=== PATIENT | male | born 1955 ===

== ENCOUNTER 2024-01-05 22:04 | Inpatient (IN) ==
[2024-01-05 23:12] LABS: INR 1.55 (0.83-1.13)
[2024-01-05 23:14] LABS: ABS Basophils 0.1 10^3/uL (0.0-0.1); ABS Eosinophils 0.1 10^3/uL (0.0-0.5); ABS Lymphocytes 1.3 10^3/uL (1.0-4.8); ABS Monocytes 1.3 10^3/uL (0.0-1.1); ABS Neutrophils 8.8 10^3/uL (1.5-7.6); ABS Nucleated RBC 0.01 10^3/ul; Eosinophil % 0.8 %; Hematocrit 33.7 % (38-53); Lymphocyte % 11.5 %; Mean Corpuscular Hemoglobin 26.8 pg (27-33); Mean Corpuscular Hgb Conc 32.6 g/dL (31-36); Mean Corpuscular Volume 82.2 fL (80-97); Mean Platelet Volume 8.3 fL (7.5-11.2); Nucleated Red Blood Cells % 0.1 %/100WBC (0.0-0.8); Platelet Count 254 10^3/uL (150-450); Red Cell Distribution Width 15.8 % (12-17); White Blood Count 11.7 10^3/uL (3.6-10.2)
[2024-01-05 23:36] LABS: Albumin/Globulin Ratio 1.4 (1-3); Calcium 9.1 mg/dL (8.6-10.3); Creatinine, Serum 0.56 mg/dL (0.67-1.17); Globulin 2.9 g/dL (2-4); Total Bilirubin 0.6 mg/dL (0.2-1.0); Total Protein 6.9 g/dL (6.4-8.9); eGFR CKD-EPI 107.4 (>60)
[2024-01-06 00:29] LABS: High Sensitivity Troponin 1 Hr 113 pg/mL (<20)
[2024-01-06] MEDS: cefTRIAXone 1 gm/50 mL D5W 1 GM/50 ML BAG IV ONE (01:29)
[2024-01-06] MEDS ORDERED: Senna TAB 8.6 mg TAB PO PRN (02:11)
[2024-01-06] MEDS ORDERED: Polyethylene Glycol 3350 17 GM PACKET PO PRN (02:11)
[2024-01-06] MEDS: Azithromycin 500 mg/250 ml NS 500 MG/250 ML BAG IVPB ONE (02:42)
[2024-01-06] MEDS: Iohexol 350 (CONTRAST) 500 ML MDV IV ONE (04:21)
[2024-01-06] MEDS: Nebivolol 2.5 mg TAB (NF) PO SCH (09:15)
[2024-01-06] MEDS: Enoxaparin 40 MG/0.4 ML SYR SUBCUT SCH (09:15)
[2024-01-06] MEDS: Albuterol/Ipratropium NEB.SOL (2.5/0.5 MG) 3 ML NEB.SOLN INH SCH (13:04)
[2024-01-06 16:13] LABS: ABS Lymphocytes 0.7 10^3/uL (1.0-4.8); ABS Monocytes 0.8 10^3/uL (0.0-1.1); ABS Neutrophils 10.6 10^3/uL (1.5-7.6); Eosinophil % 0.2 %; Hematocrit 31.5 % (38-53); Hemoglobin 9.9 g/dL (13.2-16.3); Mean Corpuscular Hemoglobin 25.9 pg (27-33); Mean Corpuscular Hgb Conc 31.4 g/dL (31-36); Mean Corpuscular Volume 82.5 fL (80-97); Mean Platelet Volume 8.6 fL (7.5-11.2); Platelet Count 241 10^3/uL (150-450); Red Blood Count 3.82 10^6/uL (4.06-5.63); White Blood Count 12.2 10^3/uL (3.6-10.2)
[2024-01-06 17:12] LABS: Calcium 8.6 mg/dL (8.6-10.3); Creatinine, Serum 0.6 mg/dL (0.67-1.17); Potassium 4.7 mmol/L (3.5-5.0); eGFR CKD-EPI 105.1 (>60)
[2024-01-07] MEDS: cefTRIAXone 1 GM Q24H (ADVAN) IVPB SCH (01:04)
[2024-01-07] MEDS: cefTRIAXone 1 gm/50 mL D5W 1 GM/50 ML BAG IV SCH (01:05)
[2024-01-07] MEDS: Azithromycin 500 mg/250 ml NS 500 MG/250 ML BAG IVPB SCH (01:47)
[2024-01-07 07:35] LABS: ABS Lymphocytes 1.1 10^3/uL (1.0-4.8); ABS Monocytes 1.2 10^3/uL (0.0-1.1); ABS Neutrophils 12.3 10^3/uL (1.5-7.6); ABS Nucleated RBC 0.01 10^3/ul; Hematocrit 32.2 % (38-53); Hemoglobin 10.2 g/dL (13.2-16.3); Lymphocyte % 7.7 %; Mean Corpuscular Hemoglobin 26.6 pg (27-33); Mean Corpuscular Hgb Conc 31.8 g/dL (31-36); Mean Corpuscular Volume 83.7 fL (80-97); Mean Platelet Volume 8.5 fL (7.5-11.2); Platelet Count 274 10^3/uL (150-450); Red Blood Count 3.84 10^6/uL (4.06-5.63); White Blood Count 14.7 10^3/uL (3.6-10.2)
[2024-01-07 07:54] LABS: Calcium 8.8 mg/dL (8.6-10.3); Creatinine, Serum 0.6 mg/dL (0.67-1.17); Magnesium 2.3 mg/dL (1.9-2.7); Potassium 4.8 mmol/L (3.5-5.0); eGFR CKD-EPI 105.1 (>60)
[2024-01-07] MEDS: Nebivolol 5 mg TAB (NF) PO SCH (09:54)
[2024-01-07] MEDS ORDERED: Albuterol 2.5mg/3 ml (0.083%) NEB.SOLN INH PRN (10:04)
[2024-01-07] MEDS: Nebivolol 2.5 mg TAB (NF) PO SCH (11:11)
[2024-01-07] MEDS: Albuterol/Ipratropium NEB.SOL (2.5/0.5 MG) 3 ML NEB.SOLN INH ONE (11:20)
[2024-01-07] MEDS: Albuterol HFA INHALER 8 gm MDI INH SCH (12:34)
[2024-01-07] MEDS ORDERED: EPINEPHrine SYR 0.1MG/ML 10 ml SYRINGE IV ONE (13:14)
[2024-01-07] MEDS ORDERED: Atropine 0.1 MG/ML 10 ml SYR (1 mg) ONE (13:14)
[2024-01-07] MEDS ORDERED: EPINEPHrine 1 MG/ML MDV 5 MG in D5W 250 ml BAG 245 ML IV SCH (13:25)
[2024-01-07] MEDS ORDERED: DOBUTAMINE IV ONE (14:00)
[2024-01-07 15:28] VITALS: BP 115/21
[2024-01-10 12:59] LABS: TB1 Ag minus Nil Result -0.01 IU/mL; TB2 Ag minus Nil Result 0.01 IU/mL
[2024-01-10 13:01] LABS: QuantiferonTb Gold Plus Result Negative (Negative)
== END 2024-01-07 13:54 | disposition expired | DRG 121 ==
LOC: EDHOLD 22:04 → ED 22:04 → SUATTDRO 01-06 02:11 → ICU 01-06 04:13 → MED 01-06 05:22 → ICU 01-07 13:02
PROVIDERS: ADMIT Internal Medicine; ATTEND Internal Medicine Critical Care Medicine